=== PATIENT | male | born 1985 | race Two or more races ===

== ENCOUNTER 2018-07-01 10:08 | Outpatient (CLI) | payer OTHER ==
[~2018-07-01 10:08] MED LIST: LEVAQUIN500 MG PO; TETRACYCLINE H500 MG PO
== END 2018-07-01 10:20 | disposition home or self-care (01) ==
LOC: RAD 501 10:08
DX: M54.2 Cervicalgia (principal)

== ENCOUNTER 2020-04-12 21:25 | Emergency (ER) | payer OTHER ==
[~2020-04-12] VITALS: Ht 188 cm; Wt 83.9 kg
[~2020-04-12 21:25] MED LIST changes: +DICLOFENAC POTA50 MG PO; +NORFLEX100MG PO
[2020-04-13] MEDS ORDERED: ZYNCOF 20-400120 ML PO (04:41)
[2020-04-13] MEDS ORDERED: ZITHROMAX500 MG PO (04:41)
== END 2020-04-13 05:52 | disposition home or self-care (01) ==
LOC: ER 21:25
DX: J45.998 Other asthma (principal); R50.9 Fever, unspecified

== ENCOUNTER 2020-12-22 21:41 | Emergency (ER) | payer OTHER ==
[~2020-12-22] VITALS: Ht 188 cm; Wt 88.0 kg
[~2020-12-22 21:41] MED LIST changes: +ZITHROMAX500 MG PO; +ZYNCOF 20-400120 ML PO
[2020-12-22] MEDS ORDERED: TYLENOL (22:25)
[2020-12-23] MEDS ORDERED: AZITHROMYCIN500 MG PO (01:40)
[2020-12-23] MEDS ORDERED: ACETAMINOPHEN650 M2 PO (01:40)
[2020-12-23] MEDS ORDERED: MELATONIN10 M2 PO (01:40)
[2020-12-23] MEDS ORDERED: COLCHICINE0.6 M1 PO (01:40)
[2020-12-23] MEDS ORDERED: IVERMECTIN3 MG PO (01:40)
[2020-12-23] MEDS ORDERED: VITAMIN D3-ALO1 EACH PO (02:00)
[2020-12-23] MEDS ORDERED: VITAMIN C WIT1000 MG PO (02:00)
[2020-12-23] MEDS ORDERED: ZINC SULFATE220 M2 PO (02:00)
== END 2020-12-23 02:04 | disposition home or self-care (01) ==
LOC: ER 21:41
DX: R06.02 Shortness of breath (principal); B34.9 Viral infection, unspecified